=== PATIENT | male | born 1955 | race Caucasian/White ===

== ENCOUNTER 2022-01-02 16:49 | Emergency (ER) | payer MEDICARE ==
--- OUTSIDE RECORDS SUMMARY | 2022-01-02 16:52 | XMS REPORT | Continuity of Care Document ---
:1955 Author Organization [facility] t Address [address] [place] [address] Care Team Providers Name Role Phone Christina Bee Attending Clinician Unavailable Payers Payer Name Policy Type Policy Number Effective Date Expiration Date S jb [facility] [id number] 2021 (MEDICARE 00:00:00 REPLACEMENT HMO) Problems This patient has no known problems. Allergies, Adverse Reactions, Alerts This patient has no known allergies or adverse reactions. Medications This patient has no known medications. Procedures This patient has no known procedures. Encounters Start End Encounter Admission Attending Care Care Encounter Source Date/Time Date/Time Type Type Clinicians Facility Department ID 2021-08-18 Outpatient Bee, [facility] [id number] Common 10:04:01 [facility] 2021-08-17 Outpatient Bee, [facility] [id number] Common 09:27:03 [facility] 2021-08-10 Outpatient Bee, [facility] [id number] Common 11:52:02 Ren [facility] 2021-08-09 Outpatient Bee, [facility] [id number] Common 14:32:19 [facility] 2021-09-15 2021-09-15 ambulatory [facility] [id number] Common 00:00:00 00:00:00 [facility] 2021-09-06 2021-09-06 ambulatory [facility] [id number] Common 00:00:00 00:00:00 [facility] 2021-08-30 2021-08-30 ambulatory [facility] [id number] Common 00:00:00 00:00:00 [facility] 2021-08-18 2021-08-18 ambulatory [facility] [id number] Common 00:00:00 00:00:00 [facility] 2021-08-16 2021-08-16 ambulatory [facility] [id number] Common 00:00:00 00:00:00 [facility] 2021-08-11 2021-08-11 ambulatory [facility] [id number] Common 00:00:00 00:00:00 [facility] 2021-08-09 2021-08-09 ambulatory [facility] [id number] Common 00:00:00 00:00:00 [facility] 2021-07-21 2021-07-21 ambulatory [facility] [id number] Common 00:00:00 00:00:00 [facility] 2021-06-05 2021-06-05 Outpatient [facility] [id number] [facility] 08:01:00 08:01:00 [facility] Results This patient has no known results.
--- NOTE | 2022-01-02 18:15 | RAD REPORT ---
EXAM DESCRIPTION: RAD - Foot Left 3 View - 01/02/2022 5:57 pm CLINICAL HISTORY: left small toe injury COMPARISON: Foot Right 3 View dated 01/02/2022; Hip Right 2 View dated 01/02/2022 FINDINGS/IMPRESSION: No acute fracture. No malalignment. No significant focal degenerative changes.
--- NOTE | 2022-01-02 18:15 | RAD REPORT ---
EXAM DESCRIPTION: RAD - Foot Right 3 View - 01/02/2022 5:57 pm CLINICAL HISTORY: right great toe injury COMPARISON: No comparisons FINDINGS/IMPRESSION: No acute fracture. No malalignment. No significant focal degenerative changes.
--- NOTE | 2022-01-02 18:16 | RAD REPORT ---
EXAM DESCRIPTION: RAD - Hip Right 2 View - 01/02/2022 5:57 pm CLINICAL HISTORY: PAIN COMPARISON: No comparisons FINDINGS: No acute fracture. No malalignment. No significant focal degenerative changes. IMPRESSION: No acute osseous abnormality involving the right hip.
--- NOTE | 2022-01-02 18:37 | ER ---
Nurse's Notes [facility] Name: Nadir Adler Age: 66 yrs Sex: Male : 1955 Arrival Date: 01/02/2022 Time: 16:51 Bed 5 Private MD: Diagnosis: Fall on same level from slipping, tripping and stumbling without subsequent striking against object;Pain in right hip;Pain in left toe(s);Pain in right toe(s) Presentation: 01/02 17:00 Chief complaint: Patient states: this morning pt tripped over rug, states Right toe vg1 pain and Right hip pain. Denies hitting head or LOC. Coronavirus screen: Vaccine status: Patient reports being unvaccinated. Client denies travel out of the [place] in the last 14 days. Ebola Screen: Patient denies exposure to infectious person. Patient denies travel to an Ebola-affected area in the 21 days before illness onset. Initial Sepsis Screen: Does the patient meet any 2 criteria? No. Patient's initial sepsis screen is negative. Does the patient have a suspected source of infection? No. Patient's initial sepsis screen is negative. Risk Assessment: Do you want to hurt yourself or someone else? Patient reports no desire to harm self or others. Onset of symptoms was January 02, 2022. 17:00 Method Of Arrival: Ambulatory vg1 17:00 Acuity: WILVER 3 vg1 Triage Assessment: 17:02 General: Appears uncomfortable, Behavior is calm, cooperative. Pain: Complains of pain vg1 in Right hip and Right toe. Historical: - Allergies: 17:02 No Known Allergies; vg1 - Home Meds: 17:02 None [Active]; vg1 - PMHx: 17:02 Ulcerative Colitis; vg1 - Immunization history:: Client reports having NOT received the Covid vaccine. - Social history:: Smoking status: Patient denies any tobacco usage or history of. Screenin:10 Abuse screen: Denies threats or abuse. Denies injuries from another. Nutritional jl7 screening: No deficits noted. Tuberculosis screening: No symptoms or risk factors identified. 18:17 Fall Risk Fall in past 12 months (25 points). Total Ellison Fall Scale indicates Low Risk jl7 Score (25-44 pts). Fall prevention measures have been instituted. Side Rails Up X 2 Placed close to Nursing Station As available Patient and Family Educated on Fall Prevention Program and strategies. Assessment: 17:10 General: Appears in no apparent distress. uncomfortable, Behavior is calm, cooperative, jl7 appropriate for age. Pain: Complains of pain in right first toe, left fifth toe and right hip Pain currently is 2 out of 10 on a pain scale. at worst was 6 out of 10 on a pain scale. Neuro: Level of Consciousness is awake, alert, obeys commands, Oriented to person, place, time, situation. Cardiovascular: Patient's skin is warm and dry. Respiratory: Airway is patent Respiratory effort is even, unlabored, Respiratory pattern is regular, symmetrical. Derm: Skin is pink, warm \T\ dry. Bruising that is dark purple, on right first toe and left fifth toe. Musculoskeletal: Range of motion: intact in all extremities, Swelling present in right first toe. 18:23 Reassessment: Patient appears in no apparent distress at this time. No changes from jl7 previously documented assessment. Patient and/or family updated on plan of care and expected duration. Pain level reassessed. Patient is alert, oriented x 3, equal unlabored respirations, skin warm/dry/pink. Vital Signs: 17:00 BP 143 / 71; Pulse 84; Resp 16; Temp 98.7(TE); Pulse Ox 100% ; Weight 68.04 kg; Height vg1 5 ft. 10 in. (177.80 cm); Pain 5/10; 18:23 BP 133 / 73; Pulse 76; Resp 15; Pulse Ox 98% ; jl7 17:00 Body Mass Index 21.52 (68.04 kg, 177.80 cm) vg1 ED Course: 16:51 Patient arrived in ED. rg4 16:58 Ld Hillman PA is PHCP. cp 16:58 Ld Mann MD is Attending Physician. cp 17:02 Triage completed. vg1 17:02 Arm band placed on. vg1 17:08 Nevin Carter, CARMEN is Primary Nurse. jl7 17:10 Patient has correct armband on for positive identification. Placed in gown. Bed in low jl7 position. Call light in reach. Side rails up X 1. 17:59 XRAY Hip RIGHT 2 view In Process Unspecified. EDMS 17:59 XRAY Foot LEFT 3 View In Process Unspecified. EDMS 17:59 XRAY Foot RIGHT 3 View In Process Unspecified. EDMS 18:17 No provider procedures requiring assistance completed. Patient did not have IV access jl7 during this emergency room visit. Administered Medications: No medications were administered Medication: 18:17 VIS not applicable for this client. jl7 Outcome: 18:36 Discharge ordered by . cp 18:45 Discharged to home ambulatory. jg9 18:45 Condition: stable 18:45 Discharge instructions given to patient, Instructed on discharge instructions, follow up and referral plans. Demonstrated understanding of instructions, follow-up care, medications, Prescriptions given X 1. 18:45 Patient left the ED. jg9 Signatures: Dispatcher [employer] EDMS Ld Hillman PA PA cp Garcia, Rubi rg4 Nevin Carter, RN RN jl7 Ange Kahn RN RN vg1 Marquita Carlson RN RN jg9
--- NOTE | 2022-01-02 18:37 | EDPHYS ---
Physician Documentation [facility] Name: Nadir Adler Age: 66 yrs Sex: Male : 1955 Arrival Date: 01/02/2022 Time: 16:51 Bed 5 Private MD: ED Physician Ld Mann HPI: 01/02 17:33 This 66 yrs old Male presents to ER via Ambulatory with complaints of Fall Injury, Hip cp Pain. 17:33 Details of fall: The patient fell from an upright position, while walking, and struck a cp tile surface. 17:33 Onset: The symptoms/episode began/occurred this morning. Associated injuries: The cp patient sustained right hip, painful injury, right first toe, painful injury, left fifth toe, painful injury. Patient reports trip and fall while walking in home this morning causing him to land on right hip and injure right great toe and left small toe. Historical: - Allergies: 17:02 No Known Allergies; vg1 - Home Meds: 17:02 None [Active]; vg1 - PMHx: 17:02 Ulcerative Colitis; vg1 - Immunization history:: Client reports having NOT received the Covid vaccine. - Social history:: Smoking status: Patient denies any tobacco usage or history of. ROS: 17:40 Constitutional: Negative for body aches, chills, fever, poor PO intake. cp 17:40 Neck: Negative for pain with movement, pain at rest, stiffness. cp 17:40 Cardiovascular: Negative for chest pain, palpitations. 17:40 Respiratory: Negative for cough, shortness of breath, wheezing. 17:40 Abdomen/GI: Negative for abdominal pain, nausea, vomiting, and diarrhea. 17:40 Back: Negative for pain at rest, pain with movement. 17:40 MS/extremity: Positive for pain, of the right first toe and left fifth toe and right hip, Negative for decreased range of motion, paresthesias. 17:40 Neuro: Negative for altered mental status, headache, weakness. 17:40 All other systems are negative. Exam: 17:45 Constitutional: The patient appears in no acute distress, alert, awake, cp non-diaphoretic, non-toxic, well developed, well nourished. 17:45 Head/Face: Normocephalic, atraumatic. cp 17:45 Neck: C-spine: vertebral tenderness, is not appreciated, crepitus, is not appreciated, ROM/movement: is normal, is supple, without pain, no range of motions limitations. 17:45 Chest/axilla: Inspection: normal, Palpation: is normal, no crepitus, no tenderness. 17:45 Cardiovascular: Rate: normal. 17:45 Respiratory: the patient does not display signs of respiratory distress, Respirations: normal, no use of accessory muscles, no retractions, labored breathing, is not present, Breath sounds: are clear throughout, no decreased breath sounds, no stridor, no wheezing. 17:45 Abdomen/GI: Inspection: abdomen appears normal, Palpation: abdomen is soft and non-tender, in all quadrants. 17:45 Back: pain, is absent, ROM is normal, vertebral tenderness, is not appreciated. 17:45 Musculoskeletal/extremity: Extremities: noted in the right hip: decreased ROM, pain, tenderness, There is no evidence of decreased ROM, deformity, noted in the right first toe: pain, swelling, tenderness, no evidence of decreased ROM, deformity, noted in the left fifth toe: ecchymosis, pain, swelling, tenderness, no evidence of decreased ROM, deformity, ROM: full passive range of motion, in the right hip, Pulses: noted to be 2+ in the right dorsalis pedis artery and left dorsalis pedis artery. 17:45 Neuro: Orientation: to person, place \T\ time. Mentation: is normal, Motor: moves all fours, strength is normal, Sensation: is normal. Vital Signs: 17:00 BP 143 / 71; Pulse 84; Resp 16; Temp 98.7(TE); Pulse Ox 100% ; Weight 68.04 kg; Height vg1 5 ft. 10 in. (177.80 cm); Pain 5/10; 18:23 BP 133 / 73; Pulse 76; Resp 15; Pulse Ox 98% ; jl7 17:00 Body Mass Index 21.52 (68.04 kg, 177.80 cm) vg1 MDM: 17:05 Patient medically screened. 01/02 17:24 Order name: XRAY Hip RIGHT 2 view; Complete Time: 18:18 01/02 18:18 Interpretation: Report reviewed. 01/02 17:24 Order name: XRAY Foot LEFT 3 View; Complete Time: 18:18 01/02 18:18 Interpretation: Reviewed report. cp 01/02 17:24 Order name: XRAY Foot RIGHT 3 View; Complete Time: 18:18 cp 01/02 18:18 Interpretation: Report reviewed. cp Administered Medications: No medications were administered Disposition Summary: 01/02/22 18:36 Discharge Ordered Location: Home cp Problem: new cp Symptoms: have improved cp Condition: Stable cp Diagnosis - Fall on same level from slipping, tripping and stumbling without subsequent cp striking against object - Pain in right hip cp - Pain in left toe(s) cp - Pain in right toe(s) cp Followup: cp - With: Private Physician - When: 2 - 3 days - Reason: Recheck today's complaints Discharge Instructions: - Discharge Summary Sheet cp - Foot Contusion cp - Hip Pain cp Forms: - Medication Reconciliation Form cp - Thank You Letter cp - Antibiotic Education cp - Prescription Opioid Use cp Prescriptions: - Diclofenac Sodium 75 mg Oral tablet,delayed release (DR/EC) - take 1 tablet by ORAL route 2 times per day; 20 tablet; Refills: 0, Product cp Selection Permitted Signatures: Dispatcher [employer] EDMS Ld Hillman PA PA cp Garcia, Victoria, RN RN vg1
[2022-01-02 19:18] VITALS: TEMP 98.7
[2022-01-02 19:20] VITALS: BP 133/73; O2SAT 98
== END 2022-01-02 18:45 | disposition home or self-care (01) ==
LOC: ER 16:49
DX: M25.551 Pain in right hip (principal); M79.675 Pain in left toe(s); M79.674 Pain in right toe(s); W01.0XXA Fall on same level from slipping, tripping and stumbling without subsequent striking against object, initial encounter

== ENCOUNTER 2022-01-05 08:32 | Inpatient (IN) | payer MEDICARE ==
--- OUTSIDE RECORDS SUMMARY | 2022-01-05 08:35 | XMS REPORT | Continuity of Care Document ---
:1955 Author Organization [facility] t Address [address] [place] [address] Care Team Providers Name Role Phone Christina Bee Attending Clinician Unavailable Payers Payer Name Policy Type Policy Number Effective Date Expiration Date S jb [facility] [id number] 2021 (MEDICARE 00:00:00 REPLACEMENT HMO) Problems This patient has no known problems. Allergies, Adverse Reactions, Alerts This patient has no known allergies or adverse reactions. Medications This patient has no known medications. Procedures This patient has no known procedures. Encounters Start End Encounter Admission Attending Care Care Encounter Source Date/Time Date/Time Type Type Clinicians Facility Department ID 2021-08-18 Outpatient Bee, [facility] [id number] Common 10:04:01 [facility] 2021-08-17 Outpatient Bee, [facility] [id number] Common 09:27:03 [facility] 2021-08-10 Outpatient Bee, [facility] [id number] Common 11:52:02 [facility] 2021-08-09 Outpatient Bee, [facility] [id number] Common 14:32:19 [facility] 2022-01-02 2022-01-02 ambulatory [facility] [id number] Common 00:00:00 00:00:00 [facility] 2021-09-15 2021-09-15 amb[facility] [id number] Common 00:00:00 00:00:00 [facility] 2021-09-06 2021-09-06 ambulatory [facility] [id number] Common 00:00:00 00:00:00 [facility] 2021-08-30 2021-08-30 ambulatory [facility] [id number] Common 00:00:00 00:00:00 [facility] 2021-08-18 2021-08-18 ambulatory [facility] [id number] Common 00:00:00 00:00:00 [facility] 2021-08-16 2021-08-16 ambulatory [facility] [id number] Common 00:00:00 00:00:00 [facility] 2021-08-11 2021-08-11 ambulatory [facility] [id number] Common 00:00:00 00:00:00 [facility] 2021-08-09 2021-08-09 ambulatory [facility] [id number] Common 00:00:00 00:00:00 [facility] 2021-07-21 2021-07-21 ambulatory [facility] [id number] Common 00:00:00 00:00:00 [facility] 2021-06-05 2021-06-05 Outpatient DMG [facility] [id number] [facility] 08:01:00 08:01:00 1122 [facility] Results This patient has no known results.
[2022-01-05] MEDS ORDERED: LEVALBUTEROL 1.25 MG/3 ML NEB ONE (08:58)
[2022-01-05 09:28] LABS: Absolute Lymphocytes (CBC) 1.3 K/uL (0.7-4.9); Hematocrit 44.4 % (39.6-49.0); Lymphocytes % 21.2 % (15.3-44.8); MCV 97.8 fL (80-100); MPV 7.5 fL (7.6-11.3); RBC Red Blood Cell Count 4.54 M/uL (4.33-5.43)
[2022-01-05 09:31] LABS: Protime INR 0.95
[2022-01-05] MEDS ORDERED: HYDROMORPHONE HCL 1 MG/ML INJ ONE (09:44)
[2022-01-05] MEDS ORDERED: MIDAZOLAM HCL 2 MG/2 ML INJ ONE (09:44)
[2022-01-05] MEDS ORDERED: LIDOCAINE 1% 20 ML MDV ONE (09:44)
--- NOTE | 2022-01-05 09:49 | RAD REPORT ---
EXAM DESCRIPTION: RAD - Chest Single View - 01/05/2022 9:23 am CLINICAL HISTORY: DYSPNEA Chest pain. COMPARISON: CHEST SINGLE VIEW dated 05/23/2011 FINDINGS: Portable technique limits examination quality. Prominent emphysema is present. There is a moderate size right-sided pneumothorax estimated at 50% a right lung volume. The heart is normal in size. No displaced fractures. IMPRESSION: Moderate size right-sided pneumothorax estimated at 50% of lung volume.
--- NOTE | 2022-01-05 09:52 | EDPHYS ---
Physician Documentation [facility] Name: Nadir Adler Age: 66 yrs Sex: Male : 1955 Arrival Date: 01/05/2022 Time: 08:37 Bed 6 Private MD: ED Physician Darinel Shukla HPI: 01/05 08:44 This 66 yrs old Male presents to ER via Unassigned with complaints of sob. rn 08:44 The patient has shortness of breath at rest. Onset: The symptoms/episode began/occurred rn this morning. Duration: The symptoms are continuous. The patient's shortness of breath is aggravated by exertion, light activity, talking, walking. Associated signs and symptoms: Pertinent negatives: chest pain, non-productive cough, productive cough, fever, hemoptysis, loss of consciousness. Severity of symptoms: At their worst the symptoms were moderate in the emergency department the symptoms are unchanged. The patient has experienced a previous episode. The patient has not recently seen a physician. Pt reports sob, began this AM, no chest pain, has had 1-2 times before. Reports quit smoking a long time ago. No hemoptysis. No cough. No trauma. . Historical: - Allergies: 08:53 No Known Allergies; jl7 - Home Meds: 08:53 None [Active]; jl7 - PMHx: 08:53 ulcerative colitis; jl7 - Immunization history:: Client reports having NOT received the Covid vaccine. - Social history:: Smoking status: Patient denies any tobacco usage or history of. - Family history:: not pertinent. - Hospitalizations: : No recent hospitalization is reported. ROS: 08:44 Constitutional: Negative for fever, chills, and weight loss, Eyes: Negative for injury, rn pain, redness, and discharge, Neck: Negative for injury, pain, and swelling, Cardiovascular: Negative for chest pain, palpitations, and edema, Respiratory: Negative for cough, and pleuritic chest pain, Abdomen/GI: Negative for abdominal pain, nausea, vomiting, diarrhea, and constipation, Back: Negative for injury and pain, MS/Extremity: Negative for injury and deformity, Skin: Negative for injury, rash, and discoloration, Neuro: Negative for headache, weakness, numbness, tingling, and seizure. Exam: 08:44 Constitutional: This is a well developed, well nourished patient who is awake, alert, rn mild tachypnea, but still drinking his coffee Head/Face: Normocephalic, atraumatic. ENT: no stridor Cardiovascular: Regular rate and rhythm. No pulse deficits. Respiratory: + tachypnea with faint exp wheezing, still able to speak full sentences. Diminished breath sounds left upper lung mccord. Abdomen/GI: Soft, non-tender Skin: Warm, dry MS/ Extremity: Pulses equal, no cyanosis. Neuro: Awake and alert, GCS 15, oriented to person, place, time, and situation. Cranial nerves II-XII grossly intact. Motor strength 5/5 in all extremities. Sensory grossly intact. Cerebellar exam normal. Normal gait. Vital Signs: 08:35 BP 141 / 97; Pulse 90; Resp 23 S; Temp 98.2(TE); Pulse Ox 80% on R/A; Weight 68.04 kg jl7 (R); Height 5 ft. 10 in. (177.80 cm) (R); 09:00 Pulse Ox 95% on 4 lpm NC; jd3 09:14 BP 121 / 93; Pulse 89; Resp 21 S; Pulse Ox 98% on 4 lpm NC; jd3 10:51 BP 129 / 85; Pulse 69; Resp 19 S; Pulse Ox 100% on R/A; jd3 12:17 BP 130 / 80; Pulse 66; Resp 16 S; Pulse Ox 97% on 3 lpm NC; jd3 08:35 Body Mass Index 21.52 (68.04 kg, 177.80 cm) jl7 Procedures: 11:14 Chest tube insertion: the site was prepped using Betadine, in sterile fashion, Tube rn size: a 24 bulgarian chest tube was inserted, introduced in right lateral chest wall, to pleur-e-vac, dressed with vaseline gauze, foam tape, 4x4s, the patient tolerated the procedure well. MDM: 08:38 Patient medically screened. rn 09:51 Differential diagnosis: Myocardial Infarction pneumonia, Pneumothorax pulmonary edema, rn Pulmonary Embolism. Data reviewed: vital signs, nurses notes, lab test result(s), EKG, radiologic studies, plain films, and as a result, I will admit patient. Counseling: I had a detailed discussion with the patient and/or guardian regarding: the historical points, exam findings, and any diagnostic results supporting the discharge/admit diagnosis, lab results, radiology results, the need for further work-up and treatment in the hospital. Admission orders: after a detailed discussion of the patient's condition and case, the admit orders are written by me. 09:51 ED course: Consulted with Dr. Jay regarding pneumothorax, states after chest tube rn placed, admit to his service with Abx and pain control.. 11:14 ED course: Improvement of pneumothorax with chest tube. Admitted to Dr. Jay, requests rn ct chest.. 01/05 08:40 Order name: BMP; Complete Time: :01/05 08:40 Order name: Blood Culture Adult (2) 01/05 08:40 Order name: CBC with Diff; Complete Time: :44 01/05 08:40 Order name: D-Dimer; Complete Time: 01/05 08:40 Order name: Magnesium; Complete Time: 01/05 08:40 Order name: NT PRO-BNP; Complete Time: 01/05 08:40 Order name: PT-INR; Complete Time: 01/05 08:40 Order name: Ptt, Activated; Complete Time: 01/05 08:40 Order name: XRAY CXR (1 view); Complete Time: 01/05 08:40 Order name: SARS-COV-2 RT PCR (Document "Date of Onset" if Symptomatic); Complete Time: rn 01/05 10:39 Order name: XRAY Chest (1 view); Complete Time: 01/05 12:17 Order name: CT Chest Wo Con 01/05 08:40 Order name: EKG; Complete Time: 08:41 01/05 08:40 Order name: Cardiac monitoring; Complete Time: 08:49 01/05 08:40 Order name: EKG - Nurse/Tech; Complete Time: 08:49 01/05 08:40 Order name: IV Saline Lock; Complete Time: :01/05 08:40 Order name: Labs collected and sent; Complete Time: 09:01/05 08:40 Order name: O2 Per Protocol; Complete Time: 08:49 01/05 08:40 Order name: O2 Sat Monitoring; Complete Time: 08:49 rn Administered Medications: 08:57 Drug: Xopenex (levalbuterol) 1.25 mg Route: Inhalation; jd3 09:50 Follow up: Response: No adverse reaction jd3 09:50 Drug: Dilaudid (HYDROmorphone) 1 mg Route: IVP; Site: right antecubital; jd3 10:50 Follow up: Response: No adverse reaction; RASS: Alert and Calm (0) jd3 10:30 Drug: Versed (midazolam) 1.5 mg Route: IVP; Site: right antecubital; jd3 11:30 Follow up: Response: No adverse reaction jd3 10:30 Drug: Lidocaine (1 %) 1 vials {Note: to bedside for chest tube placement by Dr. Shukla.} jd3 Volume: 20 ml; Route: Infiltration; 12:20 Follow up: Response: No adverse reaction jd3 10:43 Not Given (Physician Discretion): Versed (midazolam) 2 mg IVP once jd3 11:19 Drug: Ancef (cefazolin) 1 grams Route: IVPB; Site: right antecubital; jd3 12:15 Follow up: Response: No adverse reaction; IV Status: Completed infusion jd3 Disposition Summary: 01/05/22 09:52 Hospitalization Ordered Hospitalization Status: Inpatient Admission rn Provider: Gian Jay rn Location: Telemetry/[facility] (Inpatient) rn Condition: Stable rn Problem: new rn Symptoms: have improved rn Bed/Room Type: Standard rn Room Assignment: 203(01/05/22 11:51) eb Diagnosis - Primary spontaneous pneumothorax rn Forms: - Medication Reconciliation Form rn - SBAR form rn Signatures: Dispatcher [employer] Darinel Velasco MD MD rn Leal, Jahala RN RN patricia7 Edilson Bryant, RN RN Lisa Fowler Corrections: (The following items were deleted from the chart) 08:54 08:53 PSHx: None; benjamin jlRegina 09:32 08:44 Constitutional: This is a well developed, well nourished patient who is awake, rn alert, mild tachypnea, but still drinking his coffee Head/Face: Normocephalic, atraumatic. ENT: no stridor Cardiovascular: Regular rate and rhythm. No pulse deficits. Respiratory: + tachypnea with faint exp wheezing, still able to speak full sentences. Abdomen/GI: Soft, non-tender Skin: Warm, dry MS/ Extremity: Pulses equal, no cyanosis. Neuro: Awake and alert, GCS 15, oriented to person, place, time, and situation. Cranial nerves II-XII grossly intact. Motor strength 5/5 in all extremities. Sensory grossly intact. Cerebellar exam normal. Normal gait. rn 11:51 09:52 rn eb
--- NOTE | 2022-01-05 09:52 | ER ---
Nurse's Notes [facility] Name: Nadir Adler Age: 66 yrs Sex: Male : 1955 Arrival Date: 01/05/2022 Time: 08:37 Bed 6 Private MD: Diagnosis: Primary spontaneous pneumothorax Presentation: 01/05 08:35 Chief complaint: Patient states: Difficulty breathing started 30-40 min [employer], "It feels jl7 like my lungs wont expand. My right lung feels sore.". 08:35 Coronavirus screen: difficulty breathing, Client presents with at least one sign or jl7 symptom that may indicate coronavirus-19. Standard/surgical mask placed on the client. Provider contacted for isolation considerations. Ebola Screen: No symptoms or risks identified at this time. Initial Sepsis Screen: Does the patient meet any 2 criteria? No. Patient's initial sepsis screen is negative. Does the patient have a suspected source of infection? No. Patient's initial sepsis screen is negative. Risk Assessment: Do you want to hurt yourself or someone else? Patient reports no desire to harm self or others. Onset of symptoms was January 05, 2022. 08:35 Method Of Arrival: Wheelchair jl7 08:35 Acuity: WILVER 2 jl7 Triage Assessment: 08:53 General: Appears in no apparent distress. uncomfortable, Behavior is agitated, jl7 inappropriate for age, restless. Pain: Complains of pain in "Right lung". Historical: - Allergies: 08:53 No Known Allergies; jl7 - Home Meds: 08:53 None [Active]; jl7 - PMHx: 08:53 ulcerative colitis; jl7 - Immunization history:: Client reports having NOT received the Covid vaccine. - Social history:: Smoking status: Patient denies any tobacco usage or history of. - Family history:: not pertinent. - Hospitalizations: : No recent hospitalization is reported. Screenin:12 Abuse screen: Denies threats or abuse. Nutritional screening: No deficits noted. jd3 Tuberculosis screening: No symptoms or risk factors identified. Fall Risk Ambulatory Aid- None/Bed Rest/Nurse Assist (0 pts). Gait- Normal/Bed Rest/Wheelchair (0 pts) Mental Status- Oriented to own ability (0 pts). Total Ellison Fall Scale indicates No Risk (0-24 pts). Assessment: 09:13 General: Appears in no apparent distress. comfortable, Behavior is calm, cooperative, jd3 appropriate for age. Pain: Denies pain. Neuro: Hunter Agitation-Sedation Scale (RASS): 0 - Alert and Calm Level of Consciousness is awake, alert, obeys commands, Oriented to person, place, time, situation. Cardiovascular: Denies chest pain, Capillary refill < 3 seconds Patient's skin is warm and dry. Rhythm is regular. Respiratory: Reports shortness of breath at rest Airway is patent Respiratory effort is labored, Respiratory pattern is regular, symmetrical, the patient has moderate shortness of breath. GI: No signs and/or symptoms were reported involving the gastrointestinal system. : No signs and/or symptoms were reported regarding the genitourinary system. EENT: No signs and/or symptoms were reported regarding the EENT system. Derm: Skin is intact, Skin is dry, Skin is normal, Skin temperature is warm. Musculoskeletal: Circulation, motion, and sensation intact. Range of motion: intact in all extremities. 10:51 Reassessment: Patient appears in no apparent distress at this time. Patient and/or jd3 family updated on plan of care and expected duration. Pain level reassessed. Patient is alert, oriented x 3, equal unlabored respirations, skin warm/dry/pink. reports soreness on right side of chest Patient states feeling better. Patient states symptoms have improved. 12:17 Reassessment: Patient appears in no apparent distress at this time. No changes from jd3 previously documented assessment. Patient and/or family updated on plan of care and expected duration. Pain level reassessed. Patient is alert, oriented x 3, equal unlabored respirations, skin warm/dry/pink. 12:33 Reassessment: Patient appears in no apparent distress at this time. Patient and/or jd3 family updated on plan of care and expected duration. Pain level reassessed. Patient is alert, oriented x 3, equal unlabored respirations, skin warm/dry/pink. report given to 2nd floor for admission. Vital Signs: 08:35 BP 141 / 97; Pulse 90; Resp 23 S; Temp 98.2(TE); Pulse Ox 80% on R/A; Weight 68.04 kg jl7 (R); Height 5 ft. 10 in. (177.80 cm) (R); 09:00 Pulse Ox 95% on 4 lpm NC; jd3 09:14 BP 121 / 93; Pulse 89; Resp 21 S; Pulse Ox 98% on 4 lpm NC; jd3 10:51 BP 129 / 85; Pulse 69; Resp 19 S; Pulse Ox 100% on R/A; jd3 12:17 BP 130 / 80; Pulse 66; Resp 16 S; Pulse Ox 97% on 3 lpm NC; jd3 08:35 Body Mass Index 21.52 (68.04 kg, 177.80 cm) jl7 ED Course: 08:37 Patient arrived in ED. bp 08:38 Ld Hillman PA is PHCP. cp 08:38 Darinel Shukla MD is Attending Physician. cp 08:50 EKG done, by ED staff, reviewed by Darinel Shukla MD. jd3 08:52 Triage completed. jl7 08:53 Arm band placed on right wrist. jl7 08:59 Edilson Bryant RN is Primary Nurse. jd3 09:10 Inserted saline lock: 20 gauge in right antecubital area, using aseptic technique. jd3 Blood collected. 09:12 Patient has correct armband on for positive identification. Placed in gown. Bed in low jd3 position. Call light in reach. Side rails up X 1. Client placed on continuous cardiac and pulse oximetry monitoring. NIBP monitoring applied. monitor technician on. Pulse ox on. NIBP on. 09:25 XRAY CXR (1 view) In Process Unspecified. EDMS 09:51 Gian Jay MD is Hospitalizing Provider. rn 10:30 Assist provider with chest tube insertion with 24 Fr. in right lateral chest wall. Tray jd3 was set up. Attached to pleur-e-vac. Chest tube inserted by Darinel Shukla MD Placement verified by CXR, fluctuation of fluid, return of air, Dressed with Vaseline gauze, foam tape, silk tape, 4X4s, Patient tolerated well. 11:24 XRAY Chest (1 view) In Process Unspecified. EDMS 12:34 Patient admitted, IV remains in place. jd3 Administered Medications: 08:57 Drug: Xopenex (levalbuterol) 1.25 mg Route: Inhalation; jd3 09:50 Follow up: Response: No adverse reaction jd3 09:50 Drug: Dilaudid (HYDROmorphone) 1 mg Route: IVP; Site: right antecubital; jd3 10:50 Follow up: Response: No adverse reaction; RASS: Alert and Calm (0) jd3 10:30 Drug: Versed (midazolam) 1.5 mg Route: IVP; Site: right antecubital; jd3 11:30 Follow up: Response: No adverse reaction jd3 10:30 Drug: Lidocaine (1 %) 1 vials {Note: to bedside for chest tube placement by Dr. Shukla.} jd3 Volume: 20 ml; Route: Infiltration; 12:20 Follow up: Response: No adverse reaction jd3 10:43 Not Given (Physician Discretion): Versed (midazolam) 2 mg IVP once jd3 11:19 Drug: Ancef (cefazolin) 1 grams Route: IVPB; Site: right antecubital; jd3 12:15 Follow up: Response: No adverse reaction; IV Status: Completed infusion jd3 Medication: 09:12 VIS not applicable for this client. jd3 Outcome: 09:52 Decision to Hospitalize by Provider. rn 12:33 Admitted to Med/surg accompanied by nurse, accompanied by tech, via stretcher, room jd3 203, with oxygen, with chart. 12:33 Condition: stable 12:33 Instructed on the need for admit. 12:44 Patient left the ED. jd3 Signatures: Dispatcher [employer] EDDarinel Flores MD MD rn Page, Corey, PA PA cp Leal, Jahala, RN RN jl7 Davies, Jonathon, RN RN jd3 Peltier, Brian, RN RN bp Corrections: (The following items were deleted from the chart) 08:54 08:53 PSHx: None; benjamin alexander
[2022-01-05 11:12] LABS: Potassium 4.2 mmol/L (3.5-5.1)
[2022-01-05] MEDS ORDERED: CEFAZOLIN SODIUM 1 GM/VIAL ONE (11:19)
[2022-01-05] MEDS ORDERED: NA CHLORIDE 0.9% 100 ML ONE (11:19)
--- NOTE | 2022-01-05 11:34 | RAD REPORT ---
EXAM DESCRIPTION: RAD - Chest Single View - 01/05/2022 11:22 am CLINICAL HISTORY: POST CHEST TUBE Chest pain. COMPARISON: Chest Single View dated 01/05/2022; CHEST SINGLE VIEW dated 05/23/2011 FINDINGS: Portable technique limits examination quality. A right-sided chest tube has been placed. The previously noted right-sided pneumothorax has been larg miles decompressed. Emphysema is present. The heart is normal in size. No displaced fractures.
[2022-01-05] MEDS ORDERED: ONDANSETRON 4 MG/2 ML VIAL IV PRN (12:47)
[2022-01-05] MEDS: HYDROCODONE/APAP 7.5/325 MG TAB PO PRN ×3 (13:21→23:46)
--- NOTE | 2022-01-05 13:28 | RAD REPORT ---
EXAM DESCRIPTION: CT - Thorax Wo Con - 01/05/2022 12:51 pm CLINICAL HISTORY: Pneumothorax COMPARISON: Chest Single View dated 01/05/2022 TECHNIQUE: Axial 5 mm thick images of the chest were obtained without IV contrast. All CT scans are performed using dose optimization technique as appropriate and may include automated exposure control or mA/KV adjustment according to patient size. FINDINGS: A large bore chest tube is in place entering the right lateral fourth inner costal space. Tube tracks posteriorly in the oral cavity with the tip in the posterior mid chest. Approximately 20% right-sided pneumothorax remains extending along the anterior chest from apex to base. There is a ve ry minimal pneumothorax component in the posterior lung base. There is parenchymal opacification in t he posterior right lower lobe that is believed to be atelectasis. No left-sided pneumothorax or left- sided pleural effusion. There is partial atelectasis along the posterior left chest wall. Patient has a baseline of pronounced for age COPD. No abnormal mediastinal or hilar masses or lymphadenopathy seen. No gross aortic or pulmonary artery finding suspected. Assessment is limited in the absence of IV contrast. No cardiomegaly or pericardi al effusion. No chest wall mass or abnormal axillary lymphadenopathy. IMPRESSION: Right-sided chest tube in place entering the fourth intercostal space on the right and e xtending posteriorly to the mid chest. There is a remnant 20% pneumothorax running along the anterior aspect of the right hemithorax from apex to base. Baseline significant COPD with partial atelectasis of the right lower lobe.
[2022-01-05 13:39] VITALS: BMI 21.5
[2022-01-05] MEDS: HYDROMORPHONE HCL 1 MG/ML INJ IV PRN (14:50)
[2022-01-05] MEDS: CEFAZOLIN 1 GM in NA CHLORIDE 0.9% 50 ML IVPB SCH (17:39)
--- NOTE | 2022-01-05 21:33 | HP ---
Date of Admission: 01/05/2022 Reason: Right chest pneumothorax. History Of Present Illness: The patient is a 66-year-old gentleman, who presented to the emergency r oom with complaining of shortness of breath and mild chest discomfort, which began this morning befor e 8 o'clock. The patient was worked up in the ER and was found to have a significant pneumothorax. Chest tube was placed by the ER physician and the patient is being admitted. He denied any nausea, v omiting, diarrhea, constipation, or blood in his stool. No dysuria or hematuria. No sore throat, ru nny nose, cough currently, chest pain, fever, or chills. Review of Systems: Otherwise unremarkable. Past Medical History: Ulcerative colitis and benign prostatic hypertrophy. Past Surgical History: Surgeries include tonsillectomy and a cyst removal. Allergies: NO ALLERGIES. Social History: The patient quit smoking in 1997 and drinks occasionally. Family History: Noncontributory except for mother with breast cancer. Physical Examination: Vital Signs: Stable, respiratory rate is 23, pulse ox was 80% on room air, but is 95% on 4 L, he is afebrile. General: He is awake, alert, and oriented x3. Head and Neck: Cranial nerves 2 through 12 are grossly within normal limits. No neck masses. No JV D. Throat clear. Neck is supple. Chest: Diminished breath sounds on the right side. Heart: S1 and S2. Abdomen: Soft, nondistended, and nontender. Positive bowel sounds. Extremities: Neurovascularly intact. Neuro: Nonfocal. Diagnostic Studies: Chest x-ray shows moderate size right-sided pneumothorax, estimated 50% lung vol ume prior to that and chest x-ray after being having the chest tube placed is pending. Laboratory Data: Reviewed. CBC is essentially within normal limits. INR is 0.95 and D-dimer is 718 . Chemistry is pending. Assessment: Right chest pneumothorax. Recommendation: Admit, IV antibiotics, oxygen, incentive spirometry, and we will get a CT of the [address] to see what the etiology of the pneumothorax is and the chest tube will be placed on 20 cm of low suction and I will get another chest x-ray tomorrow. /MODL Voice ID: [id number]
[2022-01-06] MEDS: CEFAZOLIN 1 GM in NA CHLORIDE 0.9% 50 ML IVPB SCH ×3 (01:53→17:06)
[2022-01-06 05:16] LABS: Absolute Lymphocytes (CBC) 1.4 K/uL (0.7-4.9); Hematocrit 42.7 % (39.6-49.0); Lymphocytes % 20.3 % (15.3-44.8); MCV 99.4 fL (80-100); MPV 7.6 fL (7.6-11.3)
[2022-01-06 05:27] LABS: Potassium 4.2 mmol/L (3.5-5.1)
--- NOTE | 2022-01-06 07:31 | RAD REPORT ---
EXAM DESCRIPTION: RAD - Chest Single View - 01/06/2022 6:50 am CLINICAL HISTORY: Follow up admission chest Xray COMPARISON: Chest Single View dated 01/05/2022; Chest Single View dated 01/05/2022; CHEST SINGLE VIEW dated 05/23/2011; Thorax Wo Con dated 01/05/2022 FINDINGS: Lines: Right-sided chest tube has been retracted slightly or changed configuration. Lungs: Emphysema. Coarsened interstitial markings which are similar. No definite new acute process. Pleural: Small right-sided pneumothorax which is decreased from yesterday. Cardiac: The heart size is within normal limits. Bones: No acute fractures. Other: IMPRESSION: Decrease in size of the right-sided pneumothorax which is now small.
[2022-01-06] MEDS: HYDROCODONE/APAP 7.5/325 MG TAB PO PRN ×3 (07:55→22:58)
--- NOTE | 2022-01-06 10:10 | P.PN ---
Date of Service: 01/06/22 Subjective: Patient having some pain around his chest tube. No difficulty breathing. Objective: Vital signs stable afebrile, chest tube output is 50 cc, labs are within normal limit, chest x-ray shows improvement of the pneumothorax however patient still has a small apical pneumothorax. CT of the chest shows small pneumothorax COPD and partial atelectasis of the right lung. Chest: Clear, chest tube has no air leak Assessment: Spontaneous pneumothorax most likely secondary to COPD, status post right chest tube placement with small residual pneumothorax remaining Plan: Continue chest tube to wall suction, repeat chest x-ray in a.m., if the pneumothorax improves further, we will stop the suction. Add Lovenox for DVT prophylaxis, continue incentive spirometry and supplemental oxygen. Patient is clinically stable and slowly improving. CC:
[2022-01-06] MEDS: DOCUSATE NA 100 MG CAP PO SCH (17:06)
[2022-01-06] MEDS: ENOXAPARIN 30 MG/0.3 ML SQ SCH (17:06)
--- NOTE | 2022-01-06 17:30 | EKG ---
Test Date: 2022-01-05 Test Time: 08:49:55 Steel Placer: ASHKAN MEASUREMENT RESULTS: Intervals: Rate: 88 MI: 130 QRSD: 86 QT: 374 QTc: 452 Bend: P: 94 MI: 130 QRS: 83 T: 90 INTERPRETIVE STATEMENTS: Sinus rhythm with premature atrial complexes with aberrant conduction Right atrial enlargement Borderline ECG Compared to ECG 05/23/2011 19:39:46 Atrial premature complex(es) now present Aberrant conduction of supraventricular beat(s) now present Atrial abnormality now present Short MI interval no longer present Electronically Signed On 01-06-22 17:28:08 CDT by Sebastian Mason
[2022-01-07] MEDS: CEFAZOLIN 1 GM in NA CHLORIDE 0.9% 50 ML IVPB SCH ×3 (01:10→17:21)
[2022-01-07] MEDS: HYDROCODONE/APAP 7.5/325 MG TAB PO PRN ×3 (08:06→22:01)
[2022-01-07] MEDS: DOCUSATE NA 100 MG CAP PO SCH ×2 (08:06→20:15)
--- NOTE | 2022-01-07 08:47 | RAD REPORT ---
EXAM DESCRIPTION: RAD - Chest Single View - 01/07/2022 8:15 am CLINICAL HISTORY: Status post chest tube placement, follow-up pneumo COMPARISON: Portable January 06 TECHNIQUE: AP portable chest image was obtained 01/07/2022 8:15 am . FINDINGS: Minimal right apical pneumothorax remains. No change in positioning of the chest tube. No new or progressive lung parenchymal process. Heart size is stable. No developing pleural fluid. IMPRESSION: No change to minimal right apical pneumothorax.
--- NOTE | 2022-01-07 09:54 | P.PN ---
Date of Service: 01/07/22 Subjective: Patient having some pain around his chest tube. No difficulty breathing. No other complaints. Objective: Vital signs stable afebrile, chest tube output is 2 cc, chest x-ray shows no change in the pneumothoraxa small apical pneumothorax. Chest: Clear, chest tube has no air leak Assessment: Spontaneous pneumothorax most likely secondary to COPD, status post right chest tube placement with small residual pneumothorax remaining. Plan: We will continue chest tube on suction at this time. We will consult Dr. Caldwell to see if the patient needs pleurodesis or decortication. We will proceed based on his recommendations. CC:
[2022-01-07] MEDS ORDERED: LIDOCAINE 2% INJ, 20 mL 10 ML, NS 0.9% VIAL 40 ML IX ONE ×2 (10:39)
--- NOTE | 2022-01-07 10:41 | P.CNS ---
Date of Consult: 01/07/22 Reason for Consult: Spontaneous pneumothorax Chief Complaint: Pneumothorax History of Present Illness: Patient is 66 years of age admitted with spontaneous pneumothorax he has a chest tube in place and a small apical pneumothorax CT scan shows significant COPD he is currently doing well apart from some chest discomfort on the right side former heavy tobacco abuse. He has shortness of breath on severe exertion T scan shows significant COPD changes Allergies No Known Allergies Allergy (Unverified 01/05/22 11:34) - Past Medical/Surgical History Diabetic: No -: enlarged prostate -: tonsillectomy - Social History Alcohol use: Yes CD- Drugs: No Caffeine use: Yes Place of Residence: Home Review of Systems 10-point ROS is otherwise unremarkable Physical Examination Temp Pulse Resp BP Pulse Ox 97.8 F 73 15 149/81 H 97 01/07/22 08:00 01/07/22 08:00 01/07/22 08:00 01/07/22 08:00 01/07/22 08:00 General: Alert, In no apparent distress, Oriented x3 Respiratory: Clear to auscultation bilaterally Cardiovascular: No edema, Normal pulses, Normal S1 S2 - Problems (1) Pneumothorax Current Visit: Yes Status: Acute Plan: Patient is 66 years of age a former heavy smoker significant COPD changes on his CT scan admitted with primary spontaneous pneumothorax right now he has a small apical pneumothorax no air leak is likely this is secondary pneumothorax due to his underlying COPD changes are discussed with the patient we will plan for pleurodesis tomorrow morning is likely to recur again at this time we will clamp the tube for 4 hours unclamp again plan for pleurodesis in the morning discussed with the patient Qualifiers: Pneumothorax type: spontaneous, primary Qualified Code(s): J93.11 - Primary spontaneous pneumothorax
[2022-01-07] MEDS: POLYETHYL GLY 3350 17 GM/DOSE PO PRN (14:44)
--- NOTE | 2022-01-07 15:22 | RAD REPORT ---
EXAM DESCRIPTION: RAD - Chest Single View - 01/07/2022 3:03 pm CLINICAL HISTORY: F/u pneumo COMPARISON: Portable January 07 TECHNIQUE: AP portable chest image was obtained 01/07/2022 3:03 pm in inspiration and expiration. FINDINGS: Chest tube remains in place unchanged in position. Skin fold artifact is present medially superior to the chest tube. Small right apical pneumothorax is much more difficult to visualize but s till appears to be present slightly improved from exam earlier in the day. No new or progressive lung parenchymal process. Heart and vasculature are normal. No new or enlarging pleural fluid collection. No acute bony abnormality seen. No acute aortic findings suspected. IMPRESSION: Right apical pneumothorax has improved with only a trace amount of pneumothorax still id entifiable.
[2022-01-07] MEDS: ENOXAPARIN 30 MG/0.3 ML SQ SCH (17:21)
[2022-01-08] MEDS: CEFAZOLIN 1 GM in NA CHLORIDE 0.9% 50 ML IVPB SCH ×3 (02:11→16:48)
[2022-01-08] MEDS ORDERED: POVIDONE-IODINE 10 ML, NS 0.9% VIAL 40 ML IX SCH ×2 (07:00)
--- NOTE | 2022-01-08 07:48 | RAD REPORT ---
[facility] CLINICAL HISTORY: Pneumothorax COMPARISON: January 07, 2022 FINDINGS: Right chest tube in place. Minimal right pneumothorax. Mild right lung opacities unchanged. Lungs are hyperaerated. Heart is normal size IMPRESSION: Minimal right pneumothorax
[2022-01-08] MEDS: HYDROMORPHONE HCL 1 MG/ML INJ IV PRN (07:49)
[2022-01-08] MEDS: DOCUSATE NA 100 MG CAP PO SCH ×2 (07:49→21:05)
[2022-01-08] MEDS ORDERED: POVIDONE-IODINE 20 ML, NA CHLORIDE 0.9% 80 ML TOP SCH ×2 (08:00)
[2022-01-08] MEDS ORDERED: LIDOCAINE 2% INJ, 20 mL 10 ML, NA CHLORIDE 0.9% 40 ML TOP SCH ×2 (08:00)
[2022-01-08] MEDS ORDERED: LIDOCAINE 2% TOP SCH ×2 (08:00)
[2022-01-08] MEDS ORDERED: NA CHLORIDE 0.9% TOP SCH ×2 (08:00)
--- NOTE | 2022-01-08 08:09 | P.PN ---
Date of Service: 01/08/22 Subjective: Patient is awake alert with no complaints at this time. Dr. Caldwell is in the room about to perform a pleurodesis. Objective: Vital signs stable afebrile, chest tube output is 2 cc Chest: Clear, chest tube has no air leak Assessment: Spontaneous pneumothorax most likely secondary to COPD, status post right chest tube placement with small residual pneumothorax remaining. Plan: Pleurodesis per Dr. Caldwell. Check an x-ray in the morning, if okay will DC chest tube tomorrow. CC:
--- NOTE | 2022-01-08 12:15 | P.PN ---
Subjective Date of Service: 01/08/22 Chief Complaint: Pneumothorax Subjective: Improving (Patient is doing well he has been off suction on waterseal throughout the night right-sided apical changes) Review of Systems 10-point ROS is otherwise unremarkable Physical Examination - Vital Signs Temperature: 97.3 F Blood Pressure: 134/74 Pulse: 81 Respirations: 16 Pulse Ox (%): 94 - Physical Exam General: Alert, In no apparent distress Respiratory: Clear to auscultation bilaterally, Diminished Assessment And Plan - Current Problems (Diagnosis) (1) Pneumothorax Current Visit: Yes Status: Acute Plan: Patient is doing well no air leak he has been on waterseal all night evidence of significant pneumothorax minimal changes on the right side produces was performed today using iodine Qualifiers: Pneumothorax type: spontaneous, primary Qualified Code(s): J93.11 - Primary spontaneous pneumothorax
--- NOTE | 2022-01-08 12:16 | P.OP ---
Date of Service: 01/08/22 (Iodine pleurodesis) Findings and Operative Technique Patient is 66 years of age admitted with spontaneous right-sided presumed secondary pneumothorax he appears to have severe COPD After discussing with the patient iodine pleurodesis was performed as per protocol at the bedside and patient was premedicated with Dilaudid the chest tube will be clamped for 2 hours and be placed on suction will be taken off suction at about 10 PM possible removal of chest tube tomorrow Is at high risk for recurrent pneumothorax and due to underlying presumed severe COPD
[2022-01-08] MEDS: HYDROCODONE/APAP 7.5/325 MG TAB PO PRN ×2 (13:08→21:05)
[2022-01-08] MEDS: POLYETHYL GLY 3350 17 GM/DOSE PO PRN (13:14)
[2022-01-08] MEDS: ENOXAPARIN 30 MG/0.3 ML SQ SCH (16:48)
[2022-01-09] MEDS: CEFAZOLIN 1 GM in NA CHLORIDE 0.9% 50 ML IVPB SCH ×2 (01:15→09:42)
--- NOTE | 2022-01-09 07:07 | RAD REPORT ---
EXAM DESCRIPTION: RAD - Chest Single View - 01/09/2022 5:36 am CLINICAL HISTORY: SP pleurodesis, pneumothorax COMPARISON: January 08 TECHNIQUE: AP portable chest image was obtained 01/09/2022 5:36 am . FINDINGS: No change in positioning of the right chest tube. No change to the minimal right apical pn eumothorax. Lung parenchymal stranding has not changed. No progressive lung parenchymal process. Cardiomediastinal silhouette is stable. IMPRESSION: No change to the minimal right apical pneumothorax. No change to positioning of the right-side chest tube.
[2022-01-09 08:53] VITALS: BP 129/76; TEMP 97.9
[2022-01-09] MEDS: DOCUSATE NA 100 MG CAP PO SCH (09:42)
--- NOTE | 2022-01-09 12:07 | P.PN ---
Subjective Date of Service: 01/09/22 Chief Complaint: Pneumothorax Subjective: Improving (Doing well no complaints/ No air leak) Review of Systems Unremarkable Cardiovascular: Chest Pain Physical Examination - Vital Signs Temperature: 97.9 F Blood Pressure: 129/76 Pulse: 70 Respirations: 18 Pulse Ox (%): 99 - Physical Exam General: Alert, In no apparent distress, Oriented x3 HEENT: Other Respiratory: Clear to auscultation bilaterally, Diminished Assessment And Plan - Current Problems (Diagnosis) (1) Pneumothorax Current Visit: Yes Status: Acute Plan: Doing well/ no air leak. CXRY no change/ CTube removed CXRY 2 hrs and discharge/ PT instructed not lift heavy weights for a week resume light activities Qualifiers: Pneumothorax type: spontaneous, primary Qualified Code(s): J93.11 - Primary spontaneous pneumothorax
--- NOTE | 2022-01-09 13:24 | RAD REPORT ---
EXAM DESCRIPTION: RAD - Chest Single View - 01/09/2022 1:15 pm CLINICAL HISTORY: chest tube removal Chest pain. COMPARISON: Chest Single View dated 01/09/2022; Chest Single View dated 01/08/2022; Chest Single View dated 01/07/2022; Chest Single View dated 01/07/2022 FINDINGS: Portable technique limits examination quality. Small right apical pneumothorax appears stable since comparative study. Right-sided chest tube has be en removed. Mild bilateral pulmonary opacities also appear unchanged. The heart is stable in size. IMPRESSION: Small right apical pneumothorax is again seen without real change since prior study. Rig ht-sided chest tube has been removed.
[2022-01-09 13:32] VITALS: O2SAT 99
--- NOTE | 2022-01-09 14:50 | P.DS ---
Admission Date: 01/05/22 Discharge Date: 01/09/22 Disposition: ROUTINE DISCHARGE Discharge Condition: GOOD Reason for Admission: Pneumothorax Brief History of Present Illness: Patient is a [age]-year-old gentleman who presented to the emergency room with chest pain and shortness of breath. Work-up found right pneumothorax. Chest tube was placed in the emergency room and patient was admitted. Hospital Course: Patient was placed on oxygen and incentive spirometry was ordered. Follow-up chest x-ray showed minimal right apical pneumothorax. Dr. Caldwell was consulted. CT of the chest showed significant COPD. Patient underwent a pleurodesis yesterday. Chest tube was removed today. There is no increasing pneumothorax. Patient is clinically stable. Therefore patient will be discharged to home. Disposition: Home Condition: Stable Follow-up my office 1 to 2 weeks Resume home meds and diet No heavy lifting or strenuous exercise Follow-up with PCP Wound care instructions given Incentive spirometry as ordered Vital Signs/Physical Exam: Temp Pulse Resp BP Pulse Ox 97.9 F 70 18 129/76 99 01/09/22 12:06 01/09/22 12:06 01/09/22 12:06 01/09/22 12:06 01/09/22 12:06 Laboratory Data at Discharge: WBC 6.9 K/uL (4.3-10.9) D 01/06/22 04:21 Hgb 14.3 g/dL (13.6-17.9) 01/06/22 04:21 Hct 42.7 % (39.6-49.0) 01/06/22 04:21 Plt Count 198 K/uL (152-406) 01/06/22 04:21 PT 10.4 SECONDS (9.5-12.5) 01/05/22 09:09 INR 0.95 01/05/22 09:09 APTT 36.1 SECONDS (24.3-36.9) 01/05/22 09:09 Sodium 138 mmol/L (136-145) 01/06/22 04:21 Potassium 4.2 mmol/L (3.5-5.1) 01/06/22 04:21 BUN 14 mg/dL (7-18) 01/06/22 04:21 Creatinine 0.70 mg/dL (0.55-1.3) 01/06/22 04:21 Glucose 92 mg/dL (74-106) 01/06/22 04:21 Magnesium 2.0 mg/dL (1.8-2.4) 01/05/22 09:09 Physician Discharge Instructions: Remove outer dressing in 2 days and shower Incentive spirometry as ordered Neosporin and gauze or Band-Aid to wound daily Diet: AHA Activity: No lifting more than 10 lbs Followup: Ren Bee, [Primary Care Provider] - Gian Jay MD [ACTIVE - CAN ADMIT] - 1-2 Weeks
== END 2022-01-09 15:05 | DRG 199 ==
LOC: ER 08:32 → ERHOLD 11:04 → 2ND 12:33
PROVIDERS: ADMIT Surgery; ATTEND Surgery
PROC: 0W9930Z Drainage of Right Pleural Cavity with Drainage Device, Percutaneous Approach (ICD-10-PCS; principal; 2022-01-08)
PROC: 3E0L3GC Introduction of Other Therapeutic Substance into Pleural Cavity, Percutaneous Approach (ICD-10-PCS; 2022-01-08)
DX: J93.11 Primary spontaneous pneumothorax (principal); J96.01 Acute respiratory failure with hypoxia; N40.0 Benign prostatic hyperplasia without lower urinary tract symptoms; Z87.891 Personal history of nicotine dependence; J44.9 Chronic obstructive pulmonary disease, unspecified; Z20.822 Contact with and (suspected) exposure to COVID-19
CPT/HCPCS: 36415; 71045; 71250; 80048; 83735; 83880; 85025; 85379; 85610; 85730; 87040; 93005; 94010; 96365; 96375; 99283; 99285; J0690; J1170; J1650; J2250; U0003

== ENCOUNTER 2022-01-15 21:55 | Emergency (ER) | payer MEDICARE ==
[2022-01-15 23:52] LABS: Absolute Lymphocytes (CBC) 1.6 K/uL (0.7-4.9); Hematocrit 46.3 % (39.6-49.0); Lymphocytes % 19.7 % (15.3-44.8); MCV 97.4 fL (80-100); MPV 7.7 fL (7.6-11.3); RBC Red Blood Cell Count 4.76 M/uL (4.33-5.43)
[2022-01-15 23:53] LABS: Protime INR 1.01
[2022-01-16 00:06] LABS: Albumin 3.7 g/dL (3.4-5.0); Bilirubin Direct 0.1 mg/dL (0-0.2); Bilirubin Total 0.3 mg/dL (0.2-1.0); Magnesium 2.3 mg/dL (1.8-2.4); Potassium 3.8 mmol/L (3.5-5.1); Protein, Total 8.2 g/dL (6.4-8.2); Troponin High Sensitivity 4.8 pg/mL (<58.9)
--- NOTE | 2022-01-16 00:30 | ER ---
Nurse's Notes [facility] Name: Nadir Adler Age: 66 yrs Sex: Male : 1955 Arrival Date: 01/15/2022 Time: 21:58 Bed 5 Private MD: Diagnosis: Pneumothorax, unspecified-RIGHT , RECURRENT;COPD/ Chronic obstructive pulmonary disease, unspecified Presentation: 01/15 22:27 Chief complaint: Patient states: SOB increasing since 400 PM discharged from hospital x 6 days ago admitted for spontaneous pneumothorax. Coronavirus screen: Vaccine status: Patient reports receiving the 2nd dose of the covid vaccine. Ebola Screen: Patient negative for fever greater than or equal to 101.5 degrees Fahrenheit, and additional compatible Ebola Virus Disease symptoms. Initial Sepsis Screen: Does the patient meet any 2 criteria? No. Patient's initial sepsis screen is negative. Does the patient have a suspected source of infection?. Risk Assessment: Do you want to hurt yourself or someone else? Patient reports no desire to harm self or others. Onset of symptoms was January 15, 2022 at 16:00. 22:27 Method Of Arrival: Ambulatory 22:27 Acuity: WILVER 3 Triage Assessment: 22:36 Respiratory: Reports shortness of breath Breath sounds are absent in right posterior kl middle lobe and right posterior lower lobe. 01/16 03:51 Respiratory: Onset: The symptoms/episode began/occurred today. 03:51 Respiratory: the patient has mild shortness of breath. Historical: - Home Meds: 01/15 22:24 albuterol sulfate 90 mcg/actuation Inhl HFAA 1 puff every 4 hours [Active]; kl - PMHx: 22:24 ulcerative colitis; copd; Pneumothorax; kl - Immunization history:: Adult Immunizations up to date. - Social history:: Smoking status: Patient reports the use of cigarette tobacco products, Patient/guardian denies using tobacco, the patient reports quitting approximately 15 years ago. Screenin:01 Abuse screen: Denies threats or abuse. Nutritional screening: On. Tuberculosis kl screening: No symptoms or risk factors identified. Fall Risk None identified. Assessment: 22:23 General: Appears distressed, uncomfortable, well groomed, well developed, Behavior is kl calm, cooperative. Pain: Denies pain. Neuro: No deficits noted. Cardiovascular: No deficits noted. Respiratory: Airway is patent Respiratory effort is labored, Breath sounds are diminished bilaterally. GI: No deficits noted. No signs and/or symptoms were reported involving the gastrointestinal system. : No deficits noted. No signs and/or symptoms were reported regarding the genitourinary system. EENT: No deficits noted. No signs and/or symptoms were reported regarding the EENT system. Derm: No deficits noted. 01/16 03:51 Cardiovascular: Rhythm is sinus rhythm. Vital Signs: 01/15 22:26 BP 144 / 103; Pulse 91; Resp 20; Pulse Ox 93% on R/A; kl 23:02 BP 159 / 98; Pulse Ox 93% on R/A; kl 01/16 00:22 BP 115 / 93; Pulse 86; Resp 16 S; Pulse Ox 95% on R/A; as6 01:58 BP 133 / 88; Pulse Ox 96% on R/A; kl 02:45 BP 132 / 76; Pulse 78; Resp 16 S; Pulse Ox 97% on R/A; aa9 ED Course: 01/15 21:58 Patient arrived in ED. bp1 22:22 Ld Mann MD is Attending Physician. mitsy 22:28 Triage completed. kl 22:46 Matteo Elliott, CARMEN is Primary Nurse. as6 22:47 XRAY Chest (1 view) In Process Unspecified. EDMS 23:00 SARS-COV-2 RT PCR (Document "Date of Onset" if Symptomatic) Sent. kl 23:01 Basic Metabolic Panel Sent. kl 23:01 CBC with Diff Sent. kl 23:01 LFT's Sent. kl 23:01 Magnesium Sent. kl 23:01 NT PRO-BNP Sent. kl 23:01 PT-INR Sent. kl 23:01 Troponin HS Sent. kl 23:01 Inserted saline lock: 20 gauge 24 gauge antecubital area, using aseptic technique. kl 01/16 00:05 Initiated transfer to [facility], spoke with Ashley Nesbitt. wm 00:23 Arm band placed on. as6 01:20 Pt accepted for transfer by Dr. Gareth Angelo \\T\\ 01:20, per Ashlye Nesbitt. wm 01:57 No apparent distress. Resting quietly. kl 02:20 Assist provider with chest tube insertion with 16 Fr. in right lateral Tray was set up. aa9 Attached to wall suction, Chest tube inserted by Ld Mann MD Placement verified by fluctuation of fluid, return of air, Dressed with Vaseline gauze, foam tape, silk tape, 4X4s, Patient tolerated well. 03:06 Attempted to call report to [facility]. aa9 03:10 Chest Single View XRAY In Process Unspecified. EDMS 03:51 Patient transferred, IV remains in place. kl 03:51 Patient has correct armband on for positive identification. kl Administered Medications: 01:10 Drug: NS 0.9% 1000 ml Route: IV; Rate: 125 ml/hr; Site: right antecubital; aa9 03:11 Drug: levofloxacin 500 mg Volume: 100 ml; Route: IVPB; Infused Over: 60 mins; Site: right antecubital; Medication: 03:51 VIS not applicable for this client. Outcome: 00:29 ER care complete, transfer ordered by . misty 03:50 Transferred by ground EMS to [facility]. 03:50 Condition: stable 03:50 Instructed on the need for transfer, Demonstrated understanding of instructions. 03:51 Patient left the ED. Signatures: Dispatcher [employer] EDMS Liana Way RN RN kl Anderson, Corey, MD MD cha Paniauga, Brittany bp1 Marsh, Wendy wm Slawson, Ashby, RN RN as6 Sonia Guthrie RN RN aa9
--- NOTE | 2022-01-16 00:30 | EDPHYS ---
Physician Documentation [facility] Name: Nadir Adler Age: 66 yrs Sex: Male : 1955 Arrival Date: 01/15/2022 Time: 21:58 Bed 5 Private MD: ED Physician Ld Mann HPI: 01/16 00:21 This 66 yrs old Male presents to ER via Ambulatory with complaints of misty Breathing Difficulty. 00:21 The patient has shortness of breath at rest, with light activity. Onset: The misty symptoms/episode began/occurred just prior to arrival. Duration: The symptoms are continuous, and are unchanged since they started. The patient's shortness of breath is aggravated by coughing, is alleviated by sitting up, application of supplemental oxygen. Associated signs and symptoms: Pertinent positives: non-productive cough. Severity of symptoms: At their worst the symptoms were mild in the emergency department the symptoms are unchanged. The patient has experienced a previous episode, last week. Historical: - Home Meds: 01/15 22:24 albuterol sulfate 90 mcg/actuation Inhl HFAA 1 puff every 4 hours [Active]; kl - PMHx: 22:24 ulcerative colitis; copd; Pneumothorax; kl - Immunization history:: Adult Immunizations up to date. - Social history:: Smoking status: Patient reports the use of cigarette tobacco products, Patient/guardian denies using tobacco, the patient reports quitting approximately 15 years ago. ROS: 01/16 00:22 Constitutional: Negative for fever, chills, and weight loss, Eyes: Negative for injury, misty pain, redness, and discharge, ENT: Negative for injury, pain, and discharge, Neck: Negative for injury, pain, and swelling, Cardiovascular: Negative for chest pain, palpitations, and edema, Abdomen/GI: Negative for abdominal pain, nausea, vomiting, diarrhea, and constipation, Back: Negative for injury and pain, : Negative for injury, bleeding, discharge, and swelling, MS/Extremity: Negative for injury and deformity, Skin: Negative for injury, rash, and discoloration, Neuro: Negative for headache, weakness, numbness, tingling, and seizure, Psych: Negative for depression, anxiety, suicide ideation, homicidal ideation, and hallucinations, Allergy/Immunology: Negative for hives, rash, and allergies, Endocrine: Negative for neck swelling, polydipsia, polyuria, polyphagia, and marked weight changes, Hematologic/Lymphatic: Negative for swollen nodes, abnormal bleeding, and unusual bruising. Respiratory: Positive for cough, "sounds productive", dyspnea on exertion, shortness of breath, at rest. Exam: 00:22 Constitutional: This is a well developed, well nourished patient who is awake, alert, misty and in no acute distress. Head/Face: Normocephalic, atraumatic. Eyes: Pupils equal round and reactive to light, extra-ocular motions intact. Lids and lashes normal. Conjunctiva and sclera are non-icteric and not injected. Cornea within normal limits. Periorbital areas with no swelling, redness, or edema. ENT: Nares patent. No nasal discharge, no septal abnormalities noted. Tympanic membranes are normal and external auditory canals are clear. Oropharynx with no redness, swelling, or masses, exudates, or evidence of obstruction, uvula midline. Mucous membranes moist. Neck: Trachea midline, no thyromegaly or masses palpated, and no cervical lymphadenopathy. Supple, full range of motion without nuchal rigidity, or vertebral point tenderness. No Meningismus. Chest/axilla: Normal chest wall appearance and motion. Nontender with no deformity. No lesions are appreciated. Cardiovascular: Regular rate and rhythm with a normal S1 and S2. No gallops, murmurs, or rubs. Normal PMI, no JVD. No pulse deficits. Abdomen/GI: Soft, non-tender, with normal bowel sounds. No distension or tympany. No guarding or rebound. No evidence of tenderness throughout. Back: No spinal tenderness. No costovertebral tenderness. Full range of motion. Male : Normal genitalia with no discharge or lesions. Skin: Warm, dry with normal turgor. Normal color with no rashes, no lesions, and no evidence of cellulitis. 00:22 Respiratory: the patient does not display signs of respiratory distress, Respirations: normal, Breath sounds: decreased breath sounds, that are moderate, are heard in the right upper lobe, right middle lobe, right lower lobe, right posterior upper lobe, right posterior middle lobe and right posterior lower lobe. 01:21 ECG was reviewed by the Attending Physician. [facility] Vital Signs: 01/15 22:26 BP 144 / 103; Pulse 91; Resp 20; Pulse Ox 93% on R/A; kl 23:02 BP 159 / 98; Pulse Ox 93% on R/A; kl 01/16 00:22 BP 115 / 93; Pulse 86; Resp 16 S; Pulse Ox 95% on R/A; as6 01:58 BP 133 / 88; Pulse Ox 96% on R/A; kl 02:45 BP 132 / 76; Pulse 78; Resp 16 S; Pulse Ox 97% on R/A; aa9 Procedures: 02:56 Chest tube insertion: the site was prepped in sterile fashion, Tube size: a 20 kyr[place]z misty chest tube was inserted, introduced in right to pleur-e-vac, dressed with vaseline gauze, foam tape, the patient tolerated the procedure well. MDM: 01/15 22:22 Patient medically screened. [facility] 01/16 00:22 Differential diagnosis: abnormal EKG, anxiety, coronary artery disease peptic ulcer misty disease, pneumonia, pneumothorax, pulmonary embolus, pneumonia, Pneumothorax pulmonary edema, reactive airway disease. Antibiotic administration: Not indicated. HEART Score: History: Slightly Suspicious (0), ECG: Normal (0), Age: > or = 65 years (2), Risk Factors: 1 or 2 risk factors (1), [Hypercholesterolemia] [+ Family HX] Troponin: < or = 1 x Normal Limit (0), Total Score = 1. The patient was not given aspirin in the Emergency Department. Not indicated due to patient's past medical history. The patient's Wells Deep Vein Thrombosis Score was calculated as follows: Total Score: 0. This patient was found to be at low risk for a deep vein thrombosis by using the Well's assessment criteria Total Score: 0-2 Pts- Low Risk. The patient's pulmonary embolism risk score was calculated as follows: Total Score: 0-2 points. This patient was found to be at low risk for a pulmonary embolism by using the Well's assessment criteria Total Score: 0-2 points. This patient was found to be at low risk for a pulmonary embolism by using the Well's assessment criteria. RENE Risk Score: 1 - patient's age is greater or equal to 65 years, TOTAL SCORE = 1. Immunization status: Pneumococcal vaccine: Influenza vaccine: Data reviewed: vital signs, nurses notes, lab test result(s), EKG, radiologic studies, plain films. Data interpreted: quality assurance monitor chassis: rate is 86 beats/min, rhythm is regular, Pulse oximetry: on room air is 95 %. Test interpretation: by ED physician or midlevel provider: ECG, plain radiologic studies. 01/15 22:24 Order name: Basic Metabolic Panel; Complete Time: 00:18 [facility] 01/15 22:24 Order name: CBC with Diff; Complete Time: 00:18 [facility] 01/15 22:24 Order name: LFT's; Complete Time: 00:18 [facility] 01/15 22:24 Order name: Magnesium; Complete Time: 00:18 [facility] 01/15 22:24 Order name: NT PRO-BNP; Complete Time: 00:18 [facility] 01/15 22:24 Order name: PT-INR; Complete Time: 00:18 [facility] 01/15 22:24 Order name: Troponin HS; Complete Time: 00:18 [facility] 01/15 22:24 Order name: XRAY Chest (1 view) [facility] 01/15 22:24 Order name: SARS-COV-2 RT PCR (Document "Date of Onset" if Symptomatic) [facility] 01/16 02:58 Order name: Chest Single View XRAY [facility] 01/15 22:24 Order name: EKG; Complete Time: 22:25 [facility] 01/15 22:24 Order name: Cardiac monitoring; Complete Time: 01:32 [facility] 01/15 22:24 Order name: EKG - Nurse/Tech; Complete Time: 01:27 [facility] 01/15 22:24 Order name: IV Saline Lock; Complete Time: 00:46 [facility] 01/15 22:24 Order name: Labs collected and sent; Complete Time: 23:01 [facility] 01/15 22:24 Order name: O2 Per Protocol; Complete Time: 00:37 [facility] 01/15 22:24 Order name: O2 Sat Monitoring; Complete Time: 00:37 [facility] 01/15 22:24 Order name: Urine Dipstick-Ancillary (obtain specimen) 01/16 00:16 Order name: Misc. Order: CHEST TUBE SET UP; Complete Time: 00:31 [facility] EC:21 Rate is 87 beats/min. Rhythm is regular. QRS [place] is Normal. [place] interval is normal. QRS misty interval is normal. QT interval is normal. No Q waves. T waves are Normal. No ST changes noted. Clinical impression: NSR w/ Non-specific ST/T Changes and No evidence of ischemia. Interpreted by me. Reviewed by me. Administered Medications: 01:10 Drug: NS 0.9% 1000 ml Route: IV; Rate: 125 ml/hr; Site: right antecubital; aa9 03:11 Drug: levofloxacin 500 mg Volume: 100 ml; Route: IVPB; Infused Over: 60 mins; Site: kl right antecubital; Disposition Summary: 01/16/22 00:29 Transfer Ordered Transfer Location: [facility] misty Reason: Higher level of care misty Condition: Fair misty Problem: new misty Symptoms: have improved misty Accepting Physician: DR RAULITO MORROW(01/16/22 03:51) [email or web address] Diagnosis - Pneumothorax, unspecified - RIGHT , RECURRENT misty - COPD/ Chronic obstructive pulmonary disease, unspecified misty Forms: - Medication Reconciliation Form misty - SBAR form misty Signatures: Dispatcher [employer] iLana Ocasio RN RN kl Anderson, Corey, MD MD cha Avalos, Aylin, RN RN aa9 Corrections: (The following items were deleted from the chart) 01:18 00:29 DR RAULITO MORROW cha, cha 03:51 01:18 DR RAULITO huffman
[2022-01-16] MEDS ORDERED: NA CHLORIDE 0.9% 1,000 ML ONE (01:09)
[2022-01-16] MEDS ORDERED: Levofloxacin500mg IV 0 MG/0 ML BAG IV ONE (03:15)
[2022-01-16] MEDS ORDERED: Levofloxacin500mg IV 500 MG/100 ML BAG IV ONE (03:18)
[2022-01-16 04:04] VITALS: BP 132/76; O2SAT 97
--- NOTE | 2022-01-16 07:56 | EKG ---
Test Date: 2022-01-16 Test Time: 01:19:00 [employer] Attendant: MIRNA MEASUREMENT RESULTS: Intervals: Rate: 87 VT: 130 QRSD: 82 QT: 398 QTc: 478 [place]: P: 94 VT: 130 QRS: 80 T: 81 INTERPRETIVE STATEMENTS: Sinus rhythm with frequent premature ventricular complexes Otherwise normal ECG Compared to ECG 01/05/2022 08:49:55 Ventricular premature complex(es) now present Atrial premature complex(es) no longer present Aberrant conduction of supraventricular beat(s) no longer present Atrial abnormality no longer present Electronically Signed On 01-16-22 07:54:58 CDT by Freedom Newberry
--- NOTE | 2022-01-16 11:49 | RAD REPORT ---
EXAM DESCRIPTION: RAD - Chest Single View - 01/15/2022 10:45 pm CLINICAL HISTORY: COUGH COMPARISON: None. TECHNIQUE: XR CHEST 1 VIEW 01/15/2022 10:24 PM CDT FINDINGS: Cardiac silhouette is normal in size. There is upper lung emphysema. There is atelectasis of much of the right lung base. There is no pleural effusion. There is a lateral right basilar modera te pneumothorax, at least 20%. There are no acute osseous findings. IMPRESSION: Moderate right basilar pneumothorax. Electronically signed by: Eros Granados MD 01/15/2022 11:44 PM CDT Due to temporary technical issues with the PACS/Fluency reporting system, reports are being signed by the in house radiologist without review as a courtesy to ensure prompt reporting. The interpreting r adiologist is fully responsible for the content of the report.
--- NOTE | 2022-01-16 13:32 | RAD REPORT ---
EXAM DESCRIPTION: RAD - Chest Single View - 01/16/2022 3:09 am CLINICAL HISTORY: 66 years Male, POST CHEST TUBE COMPARISON: 01/15/2022 at 10:33 PM TECHNIQUE: Single portable x-ray view of the chest performed on 01/16/2022 at 3:05 AM FINDINGS: The lungs are well-expanded. There has been interval resolution of the right-sided pneumot horax status post chest tube placement. The right-sided chest tube is directed towards the right lung apex. No definite focal airspace consolidation is identified. The cardiac silhouette is normal in size and configuration. The mediastinal contours are normal. No acute osseous abnormality is identified. No acute soft tissue abnormalities are seen. Lines and tubes: See above. Free air: None IMPRESSION: Interval resolution of the right-sided pneumothorax status post chest tube placement. No definite acute intrathoracic disease. Electronically signed by: Val Bailon DO 01/16/2022 4:47 AM CDT Due to temporary technical issues with the PACS/Fluency reporting system, reports are being signed by the in house radiologist without review as a courtesy to ensure prompt reporting. The interpreting r adiologist is fully responsible for the content of the report.
== END 2022-01-16 03:51 | disposition short-term general hospital (02) ==
LOC: ER 21:55
DX: J93.9 Pneumothorax, unspecified (principal); J44.9 Chronic obstructive pulmonary disease, unspecified; Z20.822 Contact with and (suspected) exposure to COVID-19
CPT/HCPCS: 93005; 85025; 80048; 36415; 83735; 85610; 80076; 84484; 83880; 71045 ×2; 32556; U0003; J7030; 96374; 99285